=== PATIENT | female | born 1955 | race Caucasian/White ===

== ENCOUNTER 2020-07-31 18:34 | Emergency (ER) | payer OTHER ==
[2020-07-31] MEDS ORDERED: Aspirin 81 MG Tab.Chew PO ONE (19:20)
[2020-07-31] MEDS ORDERED: Nitroglycerin 0.4 MG Tab.SL SL PRN (19:20)
[2020-07-31] MEDS ORDERED: Heparin Sodium 5,000 Units/ML Vial IVPUSH ONE (19:21)
[2020-07-31] MEDS ORDERED: Heparin Sodium/D5W 25,000 UNITS/500 ML BAG IV SCH (19:30)
--- NOTE | 2020-07-31 19:42 | EDM.PDOC ---
ED HPI GENERAL MEDICAL PROBLEM - General Chief Complaint: Gastrointestinal Problem Stated Complaint: CHEST PAIN Time Seen by Provider: 07/31/20 19:10 Source of Information: Reports: Patient, Family History Limitations: Reports: No Limitations - History of Present Illness INITIAL COMMENTS - FREE TEXT/NARRATIVE: This is a 65 year old female with a history of breast cancer presenting with chest and epigastric discomfort. Patient reports that she initially developed epigastric discomfort under her ribs on the left side 3 days ago. It was constant throughout the day and into the following day, but then resolved. there was associated nausea that has persisted since onset 3 days ago. She reports the nausea is worse with activity, such as riding bicycle. She also reports a few e pisodes of vomiting. The pain returned again today while at rest and has been persistent since onset. Located to the epigastric and midsternal area and associated with nausea. no SOB. no lower extremity edema. no history of DVT/PE. She tried some Pepcid and aleve without relief. She also tried rubbing the area without relief. she rubbed it so much that it started to develop some bruising. - Related Data Allergies Allergy/AdvReac Type Severity Reaction Status Date / Time No Known Allergies Allergy Verified 07/31/20 19:40 Home Meds: Home Meds Anastrozole [Arimidex] 1 mg PO DAILY 07/31/20 [History] Past Medical History Oncologic (Cancer) History: Reports: Breast Social & Family History - Family History Family Medical History: No Pertinent Family History - Tobacco Use Tobacco Use Status *Q: Never Tobacco User - Caffeine Use Caffeine Use: Reports: Coffee - Recreational Drug Use Recreational Drug Use: No ED ROS GENERAL - Review of Systems Review Of Systems: Comprehensive ROS is negative, except as noted in HPI. ED EXAM, GENERAL - Physical Exam Exam: See Below Exam Limited By: No Limitations General Appearance: Alert, WD/WN, No Apparent Distress Head: Atraumatic, Normocephalic Neck: Supple, Full Range of Motion Respiratory/Chest: No Respiratory Distress, Lungs Clear, Normal Breath Sounds, No Accessory Muscle Use Cardiovascular: Normal Peripheral Pulses, Regular Rate, Rhythm, No Edema GI/Abdominal: Soft, Non-Tender Extremities: No Pedal Edema Neurological: Alert, Oriented Psychiatric: Normal Affect, Normal Mood Skin Exam: Warm, Dry, Intact, Other (ecchymosis noted to left subcostal area from patient rubbing to try to relieve the pain) #1 Interpretation EKG Date: 07/31/20 Rhythm: NSR P-Wave: Present QRS: Normal ST-T: Depressed (I, II, AVL, V4-V6) QT: Normal Comparison: NA - No Prior EKG EKG Interpretation Comments: ST depression. Concerning for NSTEMI. Course - Vital Signs Last Recorded V/S: Last Vital Signs Temp 96.1 F L 07/31/20 19:10 Pulse 100 07/31/20 19:10 Resp 16 07/31/20 19:40 BP 120/66 07/31/20 19:40 Pulse Ox 96 07/31/20 19:40 - Orders/Labs/Meds Orders: Active Orders 24 hr Category Date Time Status EKG Documentation Completion [RC] ASDIRECTED Care 07/31/20 20:08 Active CXR [Chest 2V] [CR] Stat Exams 07/31/20 19:19 Taken Heparin Sodium/D5W [Heparin 25,000 Units in D5W 500 ML] Med 07/31/20 19:30 Active 25,000 units in 500 ml IV TITRATE Nitroglycerin [Nitrostat] Med 07/31/20 19:20 Active 0.4 mg SL Q5M PRN EKG 12 Lead [EK] Routine Ther 07/31/20 19:00 Ordered EKG 12 Lead [EK] Routine Ther 07/31/20 20:08 Ordered Medication Orders Heparin Sodium/Dextrose (Heparin 25,000 Units In D5w 500 Ml) 25,000 units in 500 mls @ 23.832 mls/hr IV TITRATE DEE; Protocol Last Admin: 07/31/20 19:35 Dose: 12 units/kg/hr, 23.832 mls/hr Documented by: SYLVIE Cosigned by: PATT Nitroglycerin (Nitroglycerin 0.4 Mg Tab.Sl) 0.4 mg SL Q5M PRN PRN Reason: Chest Pain Last Admin: 07/31/20 19:34 Dose: 0.4 mg Documented by: SYLVIE Labs: Laboratory Tests 07/31/20 07/31/20 07/31/20 Range/Units 19:20 19:20 19:20 WBC 6.4 (4.5-11.0) K/uL RBC 4.20 (3.30-5.50) M/uL Hgb 12.8 (12.0-15.0) g/dL Hct 39.3 (36.0-48.0) % MCV 94 (80-98) fL MCH 31 (27-31) pg MCHC 33 (32-36) % Plt Count 191 (150-400) K/uL Neut % (Auto) 74.1 H (36-66) % Lymph % (Auto) 15.1 L (24-44) % [place] % (Auto) 9.4 H (2-6) % Eos % (Auto) 1.1 L (2-4) % Baso % (Auto) 0.3 (0-1) % PT 10.6 (9.5-12.0) sec INR 0.97 (0.80-1.20) APTT (27.0-36.0) sec Sodium 142 (140-148) mmol/L Potassium 3.8 (3.6-5.2) mmol/L Chloride 105 (100-108) mmol/L Carbon Dioxide 25 (21-32) mmol/L Anion Gap 11.6 (5.0-14.0) mmol/L BUN 26 H (7-18) mg/dL Creatinine 1.1 H (0.6-1.0) mg/dL Est Cr Clr Drug Dosing 50.90 mL/min Estimated GFR (MDRD) 50 L (>60) Glucose 114 H (74-106) mg/dL Calcium 8.7 (8.5-10.1) mg/dL Troponin I 6.933 H* (0.000-0.056) ng/mL Lipase 168 (73-393) U/L 07/31/ Range/Units 19:29 WBC (4.5-11.0) K/uL RBC (3.30-5.50) M/uL Hgb (12.0-15.0) g/dL Hct (36.0-48.0) % MCV (80-98) fL MCH (27-31) pg MCHC (32-36) % Plt Count (150-400) K/uL Neut % (Auto) (36-66) % Lymph % (Auto) (24-44) % [place] % (Auto) (2-6) % Eos % (Auto) (2-4) % Baso % (Auto) (0-1) % PT (9.5-12.0) sec INR (0.80-1.20) APTT 25.9 L (27.0-36.0) sec Sodium (140-148) mmol/L Potassium (3.6-5.2) mmol/L Chloride (100-108) mmol/L Carbon Dioxide (21-32) mmol/L Anion Gap (5.0-14.0) mmol/L BUN (7-18) mg/dL Creatinine (0.6-1.0) mg/dL Est Cr Clr Drug Dosing mL/min Estimated GFR (MDRD) (>60) Glucose (74-106) mg/dL Calcium (8.5-10.1) mg/dL Troponin I (0.000-0.056) ng/mL Lipase (73-393) U/L Meds: Medications Generic Name Dose Route Start Last Admin Trade Name Freq PRN Reason Stop Dose Admin Heparin Sodium/Dextrose 25,000 units in 500 mls @ 23.832 mls/hr 07/31/20 19:30 07/31/20 19:35 Heparin 25,000 Units In D5w 500 Ml IV 12 units/kg/hr TITRATE DEE 23.832 mls/hr Administration Protocol 12 UNITS/KG/HR Nitroglycerin 0.4 mg 07/31/20 19:20 07/31/20 19:34 Nitroglycerin 0.4 Mg Tab.Sl SL 0.4 mg Q5M PRN Administration Chest Pain Discontinued Medications Generic Name Dose Route Start Last Admin Trade Name Freq PRN Reason Stop Dose Admin Aspirin 324 mg 07/31/20 19:20 07/31/20 19:34 Aspirin 81 Mg Tab.Chew PO 07/31/20 19:21 324 mg ONETIME ONE Administration Heparin Sodium (Porcine) 4,000 units 07/31/20 19:21 07/31/20 19:35 Heparin Sodium 5,000 Units/Ml Vial IVPUSH 07/31/20 19:22 4,000 units .BOLUS ONE Administration Departure - Departure Time of Disposition: 20:56 Disposition: DC/Tfer to Acute Hospital 02 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, 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) Clinical Impression: NSTEMI (non-ST elevated myocardial infarction) Referrals: PCP,None [Primary Care Provider] - Forms: ED Department Discharge Sepsis Event Note (ED) - Evaluation Sepsis Screening Result: No Definite Risk - Focused Exam Vital Signs: Vital Signs Temp Pulse Resp BP BP Pulse Ox 07/31/20 19:40 16 120/66 96 07/31/20 19:34 153/100 H 07/31/20 19:10 96.1 F L 100 21 H 153/100 H 97 - Problem List Review Problem List Initiated/Reviewed/Updated: Yes - My Orders Last 24 Hours: My Active Orders 07/31/20 19:00 EKG 12 Lead [EK] Routine 07/31/20 19:19 CXR [Chest 2V] [CR] Stat 07/31/20 19:20 Nitroglycerin [Nitrostat] 0.4 mg SL Q5M PRN 07/31/20 19:30 Heparin Sodium/D5W [Heparin 25,000 Units in D5W 500 ML] 25,000 units in 500 ml IV TITRATE 07/31/20 20:08 EKG Documentation Completion [RC] ASDIRECTED EKG 12 Lead [EK] Routine - Assessment/Plan Last 24 Hours: My Active Orders 07/31/20 19:00 EKG 12 Lead [EK] Routine 07/31/20 19:19 CXR [Chest 2V] [CR] Stat 07/31/20 19:20 Nitroglycerin [Nitrostat] 0.4 mg SL Q5M PRN 07/31/20 19:30 Heparin Sodium/D5W [Heparin 25,000 Units in D5W 500 ML] 25,000 units in 500 ml IV TITRATE 07/31/20 20:08 EKG Documentation Completion [RC] ASDIRECTED EKG 12 Lead [EK] Routine Plan: This is a 65 year old female presenting with epigastric and chest discomfort with nausea. Differential diagnosis considered includes NSTEMI, STEMI, acid reflux, cholecystitis, biliary colic, among others. History is concerning for angina/unstable angina or NSTEMI. EKG showed ST depression in I, II, and V4-V6. No previous for comparison. She was given aspirin, nitro, and heparin bolus and drip were initiated. Upon reassessment after nitro, her symptoms have resolved and she is pain and nausea free. Her troponin returned elevated at 6.9. Presentation is consistent with NSTEMI. She has remained stable and pain free after nitro. I discussed the patient with Popeye Erazo, who accepted the patient for transfer. She was transferred in stable condition with heparin running.
--- NOTE | 2020-08-03 09:49 | CR ---
CHEST: 2 view CLINICAL HISTORY:Chest pain COMPARISON:None FINDINGS: Heart size is upper limits of normal. Pulmonary vascularity is unremarkable. There are atherosclerotic changes in the aorta. No infiltrates are seen. There are no effusions. There are some calcified right hilar nodes. Impression: Borderline cardiomegaly No acute cardiopulmonary process
== END 2020-07-31 21:05 ==
LOC: JP.ED 18:34
DX: I21.4 Non-ST elevation (NSTEMI) myocardial infarction (principal); S20.219A Contusion of unspecified front wall of thorax, initial encounter; X50.3XXA Overexertion from repetitive movements, initial encounter
CPT/HCPCS: 36415; 71046; 71046-26; 80048; 83690; 84484; 85025; 85610; 85730; 93005; 93010; 96365; 99285; 99285-25; A9270-GY; J1644